=== PATIENT | female | born 1975 | race Caucasian/White ===

== ENCOUNTER → 2017-02-25 | Outpatient (CLI) | payer BC ==
[~2017-02-25] MED LIST: IBUP600T44 PO; OXYC-57 PO
== END | disposition home or self-care (01) ==
LOC: C.LABSPEC 14:42
PROVIDERS: ATTEND Dentist Oral and Maxillofacial Surgery
DX: J34.1 Cyst and mucocele of nose and nasal sinus (principal)

== ENCOUNTER → 2017-02-25 | Outpatient (CLI) | payer BC | END | disposition home or self-care (01) | LOC: C.PATHSPEC 14:46 | PROVIDERS: ATTEND Dentist Oral and Maxillofacial Surgery | DX: J34.1 Cyst and mucocele of nose and nasal sinus (principal); J33.8 Other polyp of sinus ==

== ENCOUNTER → 2017-03-09 | Outpatient (CLI) | payer BC ==
--- NOTE | 2017-03-09 15:28 | MAMMOGRAPHY REPORT ---
BILATERAL FIRST EVER DIGITAL SCREENING MAMMOGRAM TOMOSYNTHESIS WITH CAD: 03/09/2017 CLINICAL HISTORY: Routine screening. Patient has no complaints. TECHNIQUE: Breast tomosynthesis in addition to standard 2D mammography was performed. Current study was also evaluated with a Computer Aided Detection (CAD) system. COMPARISON: No prior exams were available for comparison. BREAST COMPOSITION: There are scattered areas of fibroglandular density in both breasts. FINDINGS: There is a 5 mm focal asymmetry in the lower inner anterior/subareolar left breast which c ould represent a cyst or duct ectasia. However additional targeted ultrasound and possible additiona l mammographic views are recommended. There is an asymmetry in the superior middle to posterior left breast, only seen on the MLO view (tomosynthesis slice 21/89) measuring 9 mm. Although this could r epresent normal overlapping tissue, additional spot compression tomosynthesis, exaggerated lateral CC tomosynthesis views and possible ultrasound are recommended. No other suspicious mass, architectural distortion or cluster of microcalcifications is seen bilatera lly. IMPRESSION: ACR BI-RADS CATEGORY 0: INCOMPLETE EVALUATION: NEED ADDITIONAL IMAGING EVALUATION The 5 mm focal asymmetry in the subareolar left breast and 9 mm asymmetry in the superior middle to p osterior left breast need additional imaging evaluation. The patient will be called to schedule an appointment. Approximately 10% of breast cancers are not detected with mammography. A negative mammographic report should not delay biopsy if a clinically suggestive mass is present. Marilyn Hernandez M.D. ay/:03/09/2017 15:11:56 Devil Dog: Jennifer BALLESTEROS(Katie)(Dagoberto), [facility] letter sent: Addl Imaging 0 BI-RADS Code: ACR BI-RADS Category 0: Incomplete Evaluation: Need Additional Imaging Evaluation
== END | disposition home or self-care (01) ==
LOC: C.MAMM 14:29
PROVIDERS: ATTEND Nurse Practitioner Family
DX: Z12.31 Encounter for screening mammogram for malignant neoplasm of breast (principal); N64.89 Other specified disorders of breast

== ENCOUNTER → 2017-03-12 | Outpatient (CLI) | payer BC ==
--- NOTE | 2017-03-12 15:14 | DIAGNOSTIC IMAGING REPORT ---
SOFT TISS HEAD/NECK-THYROID CLINICAL HISTORY: 41 years-old Female presenting with NODULE ON NECK. TECHNIQUE: Real-time grayscale ultrasound imaging of the left neck was performed for a focal examination at the site of clinical interest. Color Doppler was also performed. COMPARISON: None. FINDINGS: At the site of clinical concern in the left neck, a 0.7 x 0.6 x 0.8 cm well-defined hypoechoic lesion centered in the subcutaneous fat noted just off of midline. Posterior acoustic enhancement noted. No demonstrable internal color Doppler flow. This approaches the overlying cutis but does not appear to be intimately associated with the skin surface. No peripheral hyperemia or associated fluid. No other abnormality. IMPRESSION: 1. Small hypoechoic nodule centered in the subcutaneous fat is indeterminate. The presence of posterior acoustic enhancement suggests a sebaceous cyst over a reactive lymph node or lipoma. If there is continuing clinical concern, follow-up in 4-6 weeks could be obtained to evaluate for resolution. Electronically signed by: Noah Farley M.D. 03/12/2017 3:13 PM Dictated Date/Time: 03/12/2017 3:10 PM
== END | disposition home or self-care (01) ==
LOC: C.ULTRBC 14:54
PROVIDERS: ATTEND Nurse Practitioner Family
DX: R22.9 Localized swelling, mass and lump, unspecified (principal)

== ENCOUNTER → 2017-03-17 | Outpatient (CLI) | payer OTHER ==
--- NOTE | 2017-03-18 12:47 | MAMMOGRAPHY REPORT ---
UNILATERAL LEFT DIGITAL DIAGNOSTIC MAMMOGRAM TOMOSYNTHESIS AND TARGETED LEFT ULTRASOUND: 03/17/2017 CLINICAL HISTORY: 41-year-old woman called back from screening mammography for a 9 mm asymmetry in th e superior left breast and focal asymmetry in the lower inner anterior subareolar left breast. TECHNIQUE: Spot compression tomosynthesis left CC, XCCL and MLO views were obtained. COMPARISON: Comparison is made to exam dated: 03/09/2017 mammogram - [facility]. BREAST COMPOSITION: There are scattered areas of fibroglandular density in the left breast. FINDINGS: The additional spot compression tomosynthesis views of the superior left breast demonstrate a 7 mm nodular asymmetry versus multilobulated mass in the area of recently observed 9 mm asymmetry. No associated architectural distortion or microcalcification. Further characterization with ultras ound was performed. This is thought to be located in the lateral aspect of the breast based on the t omosynthesis localizer bar. Spot compression tomosynthesis views of the anterior left breast demonstrate decreased visualization of the nodular asymmetry seen on screening mammography. Further evaluation with ultrasound was perfo rmed. Targeted ultrasound was performed in the superior left breast and in the subareolar/periareolar left breast. There is a conglomerate of tubular hypoechoic structures in the 1:00 left breast, 11 cm from the nipple, measuring approximately 6 mm in maximum dimension. This could simply represent focal du ct ectasia or normal tissue and it is unclear if this correlates with the mammographic asymmetry in t he superior breast. Additional targeted ultrasound in the periareolar left breast demonstrates a chase ney lobulated hypoechoic solid appearing mass measuring 6.6 x 2.5 x 5.5 mm. This is thought to bethany elate with the mammographic finding and has a probably benign appearance. No suspicious solid mass i s seen in the left breast on targeted ultrasound. IMPRESSION: ACR-BI-RADS CATEGORY 3: PROBABLY BENIGN, TARGETED ULTRASOUND ACR-BI-RADS CATEGORY 3: PRO BABLY BENIGN 1. There is a persistent 7 mm nodular asymmetry in the superior left breast on the MLO view without definite sonographic correlate. This could represent a benign lymph node not identified on ultrasoun d or benign fibroglandular tissue. However, a short interval follow-up left diagnostic tomosynthesis mammogram and repeat targeted ultrasound in the left 1:00 breast is recommended to ensure stability in 6 months. 2. A second nodular asymmetry in the lower inner anterior/subareolar left breast is poorly visualize d with additional spot compression tomosynthesis views but there is a probable sonographic correlate of a benign-appearing circumscribed hypoechoic mass in the 7:00 periareolar left breast on ultrasound . Again a short interval follow-up targeted left breast ultrasound in the 7:00 periareolar axis is r ecommended to ensure stability in 6 months. These results and recommendations were discussed with the patient at the time of the exam. She tenta tively scheduled a follow-up appointment prior to leaving our department. Approximately 10% of breast cancers are not detected with mammography. A negative mammographic report should not delay biopsy if a clinically suggestive mass is present. Marilyn Hernandez M.D. ay/:03/17/2017 14:46:38 [employer]: Nafisa Huitron, [facility] letter sent: Follow Up Recommended 3 BI-RADS Code: ACR-BI-RADS Category 3: Probably Benign Ultrasound BI-RADS: ACR-BI-RADS Category 3: Pr obably Benign
== END | disposition home or self-care (01) ==
LOC: C.MAMM 12:56
PROVIDERS: ATTEND Nurse Practitioner Family
DX: R92.8 Other abnormal and inconclusive findings on diagnostic imaging of breast (principal); N64.89 Other specified disorders of breast